=== PATIENT | male | born 2000 | race Two or more races ===

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

== ENCOUNTER → 2021-01-04 | Outpatient (REF) | payer OTHER ==
[2021-01-04 15:34] LABS: GC DNA AMPLIFICATION POSITIVE (NEGATIVE)
== END ==
LOC: M LAB REF 13:40
PROVIDERS: ATTEND Physician Assistant Medical
DX: A54.9 Gonococcal infection, unspecified (principal); A74.9 Chlamydial infection, unspecified